=== PATIENT | male | born 2000 ===

== ENCOUNTER 2020-07-06 21:42 | Emergency (ER) | payer MEDICAID ==
[~2020-07-06] VITALS: Ht 170.2 cm; Wt 54.2 kg
--- NOTE | 2020-07-06 23:12 | NUR ---
mom brought back to bedside per dr swenson
[2020-07-06 23:15] VITALS: BP 129/81
--- NOTE | 2020-07-06 23:15 | NUR ---
pt without tremor at bedside pt states he is feeling better
== END 2020-07-07 00:01 | disposition home or self-care (01) ==
LOC: ER 21:43
DX: G25.2 Other specified forms of tremor (principal); Z86.69 Personal history of other diseases of the nervous system and sense organs
CPT/HCPCS: 99281